=== PATIENT | female | born 1980 | race Two or more races ===

== ENCOUNTER 2024-08-27 12:34 | Emergency (ER) | payer MEDICAID, SELFPAY ==
[2024-08-27 12:36] VITALS: BMI 38.4
[2024-08-27 12:50] VITALS: BP 193/111; BP 196/109; PULSE 67; RESP 17; TEMP 37; O2SAT 99
--- NOTE | 2024-08-27 12:52 | XR_ITS ---
Examination: Pelvic ultrasound, transabdominal, complete Technique: Transabdominal ultrasound of the pelvis performed using grayscale imaging Exam date and time: August 27, 2024 1352 hours INDICATIONS: Vaginal bleeding with onset pelvic pain beginning yesterday FINDINGS: Uterus 17.1 x 6.1 x 9.1 cm Heterogeneous area in the cervix, 7.8 x 3.1 x 3.9 cm No intrauterine gestation Endometrial stripe 17 mm Right ovary 3.7 x 1.9 x 2.1 cm arterial flow Left ovary 5.5 x 3.8 x 4.9 cm arterial flow 4.2 cm cyst IMPRESSION: Heterogeneous area in the cervix 7.8 x 3.1 x 3.9 cm, differential would include blood clot, retained products of conception Recommend transvaginal pelvic sonography follow-up
--- NOTE | 2024-08-27 12:53 | PD.EDRME ---
Rapid Medical Screening Exam RME Arrival date/time: 08/27/24 12:34 44-year-old female with no known medical history presents to the emergency room with a chief complaint of bilateral pelvic pain, and vaginal bleeding x 2 days. I have greeted and performed a focused initial assessment of this patient. A comprehensive ED assessment and evaluation of the patient, analysis of all test results, and completion of the medical decision making process will be conducted by additional ED providers. Chief Complaint: Abdominal Pain Vital signs reviewed by provider: No
[2024-08-27 13:07] VITALS: BP 196/109; PULSE 67
[2024-08-27] MEDS: cloNIDine HCL 0.1 MG TABLET 0.2 MG PO (13:07)
[2024-08-27 13:13] LABS: Basophils # (Auto) 0.1 Thou/mm3 (0.0-0.2); Basophils % (Auto) 1 % (0-2.5); Eosinophils # (Auto) 0.1 Thou/mm3 (0.0-0.5); Eosinophils % (Auto) 1 % (0-10); Hematocrit 34.7 % (36.0-46.0); Hemoglobin 11.2 g/dL (12.0-16.0); Immature Granulocytes % (Auto) 0 % (0-0); Immature Granulocytes Auto 0.02 Thou/mm3 (0.00-0.00); Lymphocytes % (Auto) 20 % (10-50); Mean Corpuscular HGB Conc 32.3 g/dl (31.0-37.0); Mean Corpuscular Hemoglobin 25.5 pg (25.0-35.0); Mean Corpuscular Volume 79 fL (80-100); Monocytes # (Auto) 0.5 Thou/mm3 (0.0-0.8); Monocytes % (Auto) 5 % (0-12); Neutrophils % (Auto) 73 % (37-80); Nucleated Red Blood Cell % 0 /100 WBC (0); Platelet Count 264 Thou/mm3 (140-440); RDW Standard Deviation 44.9 fL (36.4-46.3); White Blood Count 9.7 Thou/mm3 (3.6-11.0)
[2024-08-27 13:30] LABS: Collection Type, Urine Clean Catch
[2024-08-27 13:35] LABS: Bilirubin,Urine Negative (Negative); Blood,Urine 3+ (Negative); Clarity,Urine Clear (Clear/Hazy); Color,Urine Colorless (Lt Yel-Yel); Glucose, Urine Negative (Negative); HCG Qualitative,Urine Negative; Ketones,Urine Trace (Negative); Leukocyte Esterase,Urine Negative (Negative); Nitrite,Urine Negative (Negative); PH,Urine 6.5 (5.0-7.0); Protein,Urine Trace (Neg - Trace); RBC,Urine 15 /hpf (0-3); Specific Gravity,Urine 1.015 (1.001-1.035); Squamous Epithelial Cell,Urine 1 /hpf (0-5); Urobilinogen,Urine Negative mg/dL (0.0-1.0); WBC,Urine 1 /hpf (0-5)
[2024-08-27 13:35] LABS: Alanine Aminotransferase 14 U/L (10-49); Albumin, Serum 4.2 gm/dL (3.5-5.0); Albumin/Globulin Ratio 1.4 (1.2-2.2); Alkaline Phosphatase 80 U/L (46-116); Anion Gap 5 (7-16); Aspartate Amino Transferase 12 U/L (0-34); BUN/Creatinine Ratio 12 Ratio (12-20); Bilirubin,Total 0.7 mg/dL (0.3-1.2); Blood Urea Nitrogen 7 mg/dL (9-23); Calcium 8.6 mg/dL (8.3-10.6); Calcium (Corrected) 8.6 mg/dL (8.5-10.1); Carbon Dioxide 29.1 mMol/L (20.0-31.0); Chloride 104 mMol/L (98-107); Creatinine (Component) 0.6 mg/dL (0.6-1.3); Estimated Creatinine Clearance 128.7 mL/min (>60); Globulin 2.9 gm/dL (2.3-3.5); Glucose 105 mg/dL (74-106); Lipase 31 U/L (12-53); Osmolality,Calculated 273 (275-295); Potassium 3.5 mMol/L (3.4-5.1); Sodium 138 mMol/L (136-145); Total Protein 7.1 gm/dL (5.7-8.2); eGFR > 60 See Note
--- NOTE | 2024-08-27 15:02 | PD.EDABDPN ---
ED Abdominal Pain RME/HPI General Chief Complaint: Abdominal Pain Stated complaint: LOWER ABD PAIN, VAGINAL BLEEDING Time seen by provider: 08/27/24 15:01 Arrival date/time: 08/27/24 12:34 44 year old female present to emergency room with c/o of lower/pelvic pain and vaginal bleeding for 4 days. pt report had tuba ligation 9 years ago done by Jazlyn Dykes at [facility]. LOCATION: suprapubic/lower abdominal SEVERITY: Symptoms are described as being severe with limitations on activities of daily living QUALITY: Symptoms are described as being cramping CONTEXT: The patient is unable to identify any inciting events. DURATION/TIMING: The symptoms started approximately 4 day ago and have been waxing/waning but always present without ever completely resolving. ASSOCIATED SYMPTOMS: vaginal bleeding, abd pain MODIFYING FACTORS: The patient is unable to identify any alleviating or aggravating symptoms. PERTINENT ROS: denies trauma, denies domestic violence, no dysuria or hematuria, no orthostatic symptoms, no nausea or vomiting, no fevers, no anorexia, no diarrhea or constipation REVIEW OF SYSTEMS: See History of Present Illness - with the exception of those mentioned in the history of present illness, all other systems reviewed and reported as negative GENERAL: In general the patient is awake, interactive, in an emergency department gurney. HEAD/EYES/EARS/NOSE/THROAT: normo-cephalic, atraumatic, mucus membranes are moist, anicteric, palpebral conjunctiva is pink, trachea is midline. CARDIOVASCULAR: regular rate and regular rhythm, no murmurs, heart sounds are not distant, strong pulses in all four extremities that are equal and symmetric bilateral upper and lower extremities, normal capillary refill. CHEST/PULMONARY: normal chest rise and fall, good air movement, clear to auscultation bilaterally, normal inspiratory to expiratory ratios without evidence of respiratory distress. NECK: No midline/Paraspinal tenderness, no step off ROM/Strenght intact No Kernig and bruzinski sign. No trauma ABDOMEN: soft, lower abdominal tenderness, no masses appreciated BACK: normal range of motion without pain. NEUROLOGICAL: cranio-facial features are symmetric, moves all four extremities equally without obvious limitations or weakness. EXTREMITY: no tenderness to palpation over the long bones or large joints of the bilateral upper and lower extremities, no joint swelling, no joint erythema, no signs of trauma, no unilateral leg swelling and no peripheral edema. SKIN: warm, dry, well-perfused, no jaundice, no rash, no telangiectasias or petechia. PSYCH: calm, cooperative, no evidence of psychosis or agitation RME / HPI RME / HPI narrative: 08/27/24 12:34 44-year-old female with no known medical history presents to the emergency room with a chief complaint of bilateral pelvic pain, and vaginal bleeding x 2 days. I have greeted and performed a focused initial assessment of this patient. A comprehensive ED assessment and evaluation of the patient, analysis of all test results, and completion of the medical decision making process will be conducted by additional ED providers. Related Data Previous Rx's ?Medication ?Instructions ?Recorded Bisacodyl * (DULCOLAX *) 5 mg PO QDAY PRN CONSTIPATION ##30 07/15/15 Hydrocodone/Acetaminophen * (NORCO 1 tab PO Q12HR PRN ABDOMINAL 07/15/15 5/325 *) CRAMPING #12 tabs ibuprofen 600 mg tablet 600 mg PO Q8HR PRN PAIN #30 tabs 07/15/15 tramadol 25 mg tablet 25 mg PO Q6H PRN pain #14 tabs 08/27/24 Allergies Allergy/AdvReac Type Severity Reaction Status Date / Time No Known Allergies Allergy Verified 08/27/24 12:36 Course Course Course Narrative: 2 days vaginal bleeding most likely of nonemergent etiology. Workup: CBC, CMP, UA, bHCG, Type&Screen, US Based on History, Exam, and Workup I believe the patient?s presentation not consistent with ectopic , molar , life-threatening coagulopathy, trauma, serious bacterial infection, central process or other emergency. Patient Stable Appearing and presentation most likely secondary to fibroids or other non-emergent cause of abnormal uterine bleeding. Disposition: Will discharge home with return precautions and instruction for prompt OBGYN follow up. Quality Measures none Orders Category Date Time Status US pelvic complete Stat Exams 08/27/24 12:52 Completed US transvaginal Stat Exams 08/27/24 15:30 Completed CBC Stat Lab 08/27/24 13:02 Completed CMP [Comprehensive Metabolic Panel] Stat Lab 08/27/24 13:02 Completed HCG Qualitative,Urine Stat Lab 08/27/24 13:10 Completed Lipase Stat Lab 08/27/24 13:02 Completed UA [Urinalysis] Stat Lab 08/27/24 13:10 Completed Urine Culture Stat Lab 08/27/24 13:10 Received cloNIDine HCL [Catapres] Med 08/27/24 12:58 Discontinued 0.2 mg PO X1 ONE traMADol HCL [Ultram] Med 08/27/24 17:54 Discontinued 50 mg PO X1 ONE Reevaluation(s) Reevaluation #1: spoke with patient about labs and us report. pt report had tubal ligation 9 years ago. no recent pregancy. 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 Vital Signs Vital signs: Vital Signs Temperature 98.6 F 08/27/24 12:50 Pulse Rate 67 08/27/24 12:50 Respiratory Rate 17 08/27/24 12:50 Blood Pressure 196/109 H 08/27/24 12:50 Pulse Oximetry (%) 99 08/27/24 12:50 Oxygen Delivery Method Room Air 08/27/24 12:50 Abdominal Pain MDM Patient data External records reviewed:: None Clinical information provided by:: patient Social determinants that could affect healthcare access:: none Patient has the following chronic illnesses:: none How is presenting disease/condition affected by chronic disease/condition?: no chronic disease Evaluation data The following diagnostics were reviewed and interpreted by me:: lab results and radiology exam(s) Lab and/or radiology exams considered but not ordered:: none Interpretation Summary: cbc/cmp wnl urine no infection us: Uterus 17.1 x 6.1 x 9.1 cm Heterogeneous area in the cervix, 7.8 x 3.1 x 3.9 cm No intrauterine gestation Endometrial stripe 17 mm Right ovary 3.7 x 1.9 x 2.1 cm arterial flow Left ovary 5.5 x 3.8 x 4.9 cm arterial flow 4.2 cm cyst IMPRESSION: Heterogeneous area in the cervix 7.8 x 3.1 x 3.9 cm, differential would include blood clot, retained products of conception Recommend transvaginal pelvic sonography follow-up US transvag: FINDINGS: Uterus 14.7 x 5.0 cm Heterogeneous oval mass in the cervix 6.2 x 3.4 x 3.6 cm with internal echoes and motion Ovaries obscured by bowel gas IMPRESSION: Findings most consistent with retained products of conception in the cervix Recommend short-term follow-up transvaginal pelvic sonography. Medications / Prescriptions Medications or Prescriptions considered but not ordered:: none Medication administrations:: Medication Administration History Discontinued Medications Clonidine (Clonidine Hcl 0.1 Mg Tablet) 0.2 mg PO X1 ONE Stop: 08/27/24 12:59 Last Admin: 08/27/24 13:07 Dose: 0.2 mg Documented By: Tramadol HCl (Tramadol Hcl 50 Mg Tablet) 50 mg PO X1 ONE Stop: 08/27/24 17:55 as stated above Consultations Consultation(s) initiated? (list below): Yes Consultation #1 (Physician, Specialty, Details): [id number] Garcia for consult Diagnosis Differential diagnosis abdominal pain: abdominal pain, calculus of kidney, endometriosis and other (UTI , fibroid , ovarian cyst ) Most likely diagnosis given after review of the tests above:: vag bleeding Admission Indicated Admission indicated?: not indicated Admission Request Was there a request for admission?: No Disposition Plan Disposition Plan: Discharge Discharge Attestation Discharge Attestation: The patient and all family members were given an opportunity to ask questions and understood the discharge instructions. Discharge instructions specifically effects, indications for sooner follow up or return to the emergency department, and the expected course of current diagnosis. Patient condition: Stable Discharge Plan Plan Patient Disposition: HOME (Self Care) Prescriptions/Referrals Prescriptions/Med Rec: New tramadol 25 mg tablet 25 mg PO Q6H PRN (Reason: pain) Qty: 14 0RF No Action ibuprofen 600 MG tablet 600 mg PO Q8HR PRN (Reason: PAIN) Qty: 30 1RF Bisacodyl * (DULCOLAX *) 5 MG TABLET.DR 5 mg PO QDAY PRN (Reason: CONSTIPATION) Qty: 30 0RF Hydrocodone/Acetaminophen * (NORCO 5/325 *) 1 TAB tablet 1 tab PO Q12HR PRN (Reason: ABDOMINAL CRAMPING) Qty: 12 0RF Referrals: No Primary/Family,Physician [Primary Care Provider] - In 1 week Alondra Garcia MD [Physician] - In 1 week Problem List Clinical Impression: Vaginal bleeding Patient/Caregiver Discharge Instructions Education Materials: ED Dysfunctional Uterine Bleeding Print Language: Belgian Stand Alone Forms: [employer] Award Info., Patient Portal Info Letter
--- NOTE | 2024-08-27 15:30 | XR_ITS ---
Examination: Transvaginal ultrasound of the pelvis, complete Technique: Transvaginal sonographic images pelvis performed using [place] scale imaging Exam date and time: August 27, 2024 1343 hours INDICATIONS: Pelvic pain and vaginal bleeding today, heterogeneous area in the cervix 7.8 x 3.1 x 3.9 cm on transabdominal pelvic sonogram today FINDINGS: Uterus 14.7 x 5.0 cm Heterogeneous oval mass in the cervix 6.2 x 3.4 x 3.6 cm with internal echoes and motion Ovaries obscured by bowel gas IMPRESSION: Findings most consistent with retained products of conception in the cervix Recommend short-term follow-up transvaginal pelvic sonography.
[2024-08-27 17:15] VITALS: BP 133/85; PULSE 69; RESP 18; O2SAT 98
[2024-08-27] MEDS: traMADol HCL 50 MG TABLET PO (18:12)
== END 2024-08-27 18:16 | disposition home or self-care (01) ==
PROVIDERS: Nurse Practitioner Family; Emergency Provider Emergency Medicine
DX: N93.9 Abnormal uterine and vaginal bleeding, unspecified (principal); N83.202 Unspecified ovarian cyst, left side; Z98.51 Tubal ligation status
CPT/HCPCS: 36415; 76830; 76856; 80053; 81001; 81025; 83690; 85025; 87086; 99284; A9270